=== PATIENT | male | born 1965 | race African-American/Black ===

== ENCOUNTER 2019-06-21 11:07 | Emergency (ER) | payer SELFPAY ==
--- NOTE | 2019-06-21 12:18 | ULT ---
LEFT LOWER EXTREMITY VENOUS DUPLEX EXAM: Date: 06/21/19 HISTORY: Left leg pain and swelling. FINDINGS: Real-time color Doppler evaluation of the left lower extremity was performed from groin to calf. This includes evaluation of the common femoral, superficial and profunda femoral, saphenous, popliteal, a nd posterior tibial veins. In the region of the calf, which is primary area of patient's pain, there is some nonocclusive thromb us in what appears to be one of the deep veins just distal to the popliteal. Popliteal appears patent . Patient has somewhat prominent superficial veins, but this particular vein maintains a fairly deep course, although it does not appear to be the posterior tibial vein. It may represent some sort of an omalous deep vein, but given its course and origin from the popliteal without passing towards the ski n surface, it is presumed to represent a deep vein. The remainder of the deep venous system is normal . IMPRESSION: Findings that would suggest a deep venous thrombosis of the calf, as discussed above. POS: OFF
[2019-06-21 12:55] LABS: #Eosinphils 0.1 thou/uL (0.0-0.7); #Lymphocytes 2.5 thou/uL (1.20-3.40); #Monocytes 0.9 thou/uL (0.11-0.59); #Neutrophils 9.4 thou/uL (1.40-6.50); %Basophils 0.1 % (0.0-1.0); %Eosinophils 1.1 % (0.0-10.0); %Lymphocytes 19.1 % (21.0-51.0); %Monocytes 6.8 % (0.0-10.0); %Neutrophils 72.9 % (42.0-75.0); Hemoglobin 16.5 g/dL (14.0-18.0); Mean Corpuscular Hemoglobin 30.1 pg (27.0-31.0); Mean Corpuscular Volume 88.7 fL (78.0-98.0); Mean Platelet Volume 6.9 fL (7.4-10.4); Platelet Count 302 thou/uL (130-400); RBC Distribution Width 14.1 % (11.5-14.5); Red Blood Cell (RBC) Count 5.47 mill/uL (4.70-6.10); White Blood Cell (WBC) Count 12.9 thou/uL (4.8-10.8)
[2019-06-21 13:02] LABS: INR-International Normal Ratio 0.9; PTT 25.8 SEC (22.9-36.1); Prothrombin Time 12.5 SEC (12.0-14.7)
[2019-06-21] MEDS ORDERED: Acetaminophen 500 MG TAB ONE (13:33)
== END 2019-06-21 14:20 | disposition home or self-care (01) ==
LOC: ERS 11:07
DX: I82.4Z2 Acute embolism and thrombosis of unspecified deep veins of left distal lower extremity (principal); F17.210 Nicotine dependence, cigarettes, uncomplicated
CPT/HCPCS: 36415; 85025; 85610; 85730

== ENCOUNTER 2022-09-29 16:38 | Emergency (ER) | payer SELFPAY ==
[2022-09-29] MEDS ORDERED: Ketorolac Tromethamine 30 MG/ML VIAL ONE (20:18)
== END 2022-09-29 22:47 | disposition home or self-care (01) ==
LOC: ERS 16:38
DX: S01.81XD Laceration without foreign body of other part of head, subsequent encounter (principal); F17.210 Nicotine dependence, cigarettes, uncomplicated; W19.XXXD Unspecified fall, subsequent encounter
CPT/HCPCS: 96372; 99283; J1885